=== PATIENT | male | born 1955 | race Caucasian/White ===

== ENCOUNTER 2016-06-11 10:38 | Emergency (ER) | payer OTHER ==
[~2016-06-11 10:38] MED LIST: ALBUTEROL17 GM INH; CLARITIN D PO; CLARITIN10 M3 PO; COMBIVENT INH14.7 GM INH; COMBIVENT RESPIM4 GM INH; PROTONIX PO
[2016-10-12] MEDS ORDERED: HYOSCYAMINE0.375 M5 PO (12:50)
[2016-10-12] MEDS ORDERED: PHILLIPS' COLO1 EACH PO (12:51)
[2016-10-12] MEDS ORDERED: LEVSIN0.125 M2 PO (12:51)
[2016-10-12] MEDS ORDERED: FD GUARD PO (12:57)
== END 2016-06-11 11:15 | disposition home or self-care (01) ==
LOC: SED 10:38
DX: S61.254A Open bite of right ring finger without damage to nail, initial encounter (principal); Z23 Encounter for immunization; Z88.0 Allergy status to penicillin; W54.0XXA Bitten by dog, initial encounter; Y92.009 Unspecified place in unspecified non-institutional (private) residence as the place of occurrence of the external cause
CPT/HCPCS: 90471; 90715; 97602; 99283

== ENCOUNTER → 2016-10-14 | Day surgery (SDC) | payer OTHER ==
[~2016-10-14] MED LIST changes: +FD GUARD PO; +HYOSCYAMINE0.375 M5 PO; +LEVSIN0.125 M2 PO; +PHILLIPS' COLO1 EACH PO
--- NOTE | ~2016-10-14 | EKG ---
PATIENT: DUTCH PHILLIPS UNIT #: [id number] Ventricular Rate: 68 BPM Atrial Rate: 68 BPM P-R Interval: 146 ms QRS Duration: 122 ms Q-T Interval: 420 ms QTC Calculation(Bezet): 446 ms P Mclean: 17 degrees Calculated R Mclean: 34 degrees Calculated T Mclean: 25 degrees Diagnosis Line: Normal sinus rhythm Diagnosis Line: Non-specific intra-ventricular conduction delay Diagnosis Line: Borderline ECG Diagnosis Line: When compared with ECG of 09-MAR-2015 10:41, Diagnosis Line: Non-specific intra-ventricular conduction delay Diagnosis Line: has replaced Right bundle branch block Diagnosis Line: Confirmed by ESTRELLA VICK MD ([id number]) on Diagnosis Line: 10/14/2016 3:06:22 PM INTERPRETING MD: NAVA JOSUE
--- NOTE | ~2016-10-14 | OR ---
Unit #: [id number] #: [id number] Patient: DUTCH PHILLIPS [id number] [place], [place] [address] [id number] O MR#: [id number] NAME: DUTCH PHILLIPS ROOM: Date of Procedure: 10/14/2016 Admission Date: 10/14/2016 Surgeon: Jayme Acuna M.D. : 1955 Attending Physician: Jayme Acuna M.D. Referring Physician: Jayme Acuna M.D. Primary Care Physician: Emeka Glover M.D. OPERATIVE REPORT PREOPERATIVE DIAGNOSIS Urge incontinence. POSTOPERATIVE DIAGNOSIS Urge incontinence. PROCEDURE PERFORMED Right stage I stage II InterStim placement. ANESTHESIA General. DESCRIPTION OF PROCEDURE After informed consent, he was taken to the operating room, placed under general anesthetic, positioned prone. His low back and buttock area were prepped and draped in the usual sterile fashion. Using bony landmarks and fluoroscopy, the S3 foramen was located on the right and stimulation. He had a positive motor response, bellowing of the buttocks and plantar flexion of the great toe. The lead was placed transcutaneously using the curved stylet. The leads were straddling the endplate. He had a positive motor response on all 4 leads. Fluoroscopy was used to take permanent imaging. The lead was then tunneled over to an incision that was created on the right buttock for the generator. This wound was irrigated with copious amount of irrigation. It was connected to the generator and placed inside the pocket. The generator was then interrogated and synched to his remote. The wounds were closed in multiple layers using Vicryl and Monocryl. Dermabond was placed across the incision. All counts were correct at the end of the procedure. The patient will be discharged home and return to see me in 1 to 2 weeks. Dictated by... Richelle Harper/jocelinl TD: 10/14/2016 15:24 JOB #: [id number] Unit #: [id number] #: [id number] Patient: DUTCH PHILLIPS OPERATIVE REPORT Page 1 of 1 X Jayme Acuna MD PROCEDURE OPERATIVE NOTE
--- NOTE | ~2016-10-14 | CR181 ---
[facility] A Service [facility] RADIOLOGY TEXT RESULTS PATIENT: DUTCH PHILLIPS LOCATION: [facility] : 57 UNIT #: [id number] AGE: [address]: Jayme Acuna MD SEX: M ORDER DR: [id number] [place], [place] [address] [id number] O MR#: [id number] Acc #: [id number] NAME: DUTCH PHILLIPS : 1955 SEX: M STUDY DATE/TIME: 10/14/2016 12:40 UNIT: [facility] ROOM: STUDY DESCRIPTION: CR Lumbar Spine 2 or 3 Views Attending Physician: Jayme Acuna M.D. Referring Physician: Jayme Acuna M.D. Ordering Physician: Jayme Acuna M.D. Primary Care Physician: Emeka Glover M.D. MEDICAL IMAGING REPORT This report is preliminary unless electronic signature is present EXAM Lumbar spine 2-3 views HISTORY Sacral nerve stimulator placement in the OR. FLUORO TIME 15 seconds, Dr. Acuna. IMAGES 2 fluoroscopic images. COMMENT 2 fluoroscopic images submitted for retrospective review from 1241 10/14/2016. They show a stimulator lead projected over the sacrum on 2 views. Please refer to the procedural note by Dr. Acuna. IMPRESSION 2 fluoroscopic images submitted retrospective review obtained by Dr. Acuna during sacral nerve stimulator placement. Dictated by... Betsy Aquino M.D. THIS IS AN ELECTRONICALLY VERIFIED REPORT Betsy Aquino M.D. at 10/15/2016 4:15 PM SAC/sandra TD: 10/15/2016 13:25 JOB #: [id number] MEDICAL IMAGING REPORT [facility] A Service [facility] RADIOLOGY TEXT RESULTS PATIENT: DUTCH PHILLIPS LOCATION: [facility] : 57 UNIT #: [id number] AGE: [address]: Jayme Acuna MD SEX: M ORDER DR: Page 1 of 1 COPY
== END | disposition home or self-care (01) ==
LOC: CSUR 09:50
DX: N39.41 Urge incontinence (principal); K21.9 Gastro-esophageal reflux disease without esophagitis; J45.909 Unspecified asthma, uncomplicated; G47.30 Sleep apnea, unspecified; Z88.0 Allergy status to penicillin; Z79.899 Other long term (current) drug therapy; Z98.890 Other specified postprocedural states; Z90.49 Acquired absence of other specified parts of digestive tract; Z86.010 Personal history of colon polyps
CPT/HCPCS: 72100; 76000; 93005; C1767; C1778; C1787; J0330; J1100; J1956; J2250; J2405; J3010